=== PATIENT | female | born 1980 | race Caucasian/White ===

== ENCOUNTER 2019-12-27 22:58 | Observation (INO) ==
[2019-12-27 23:19] LABS: Basophils # 0.1 K/mcL (0.0-0.2); Basophils % 0.8 %; Eosinophils # 0.2 K/mcL (0.0-0.6); Eosinophils % 2.5 %; Hematocrit 40.5 % (35.3-44.9); Hemoglobin 13.5 g/dL (11.5-15.4); Immature Granulocytes % 0.3 % (0-4); Lymphocytes # 2.7 K/mcL (0.6-4.6); Lymphocytes % 36.3 %; Mean Corpuscular HGB Conc 33.3 g/dL (31.6-35.5); Mean Corpuscular Hemoglobin 30.8 pg (28.0-33.3); Mean Corpuscular Volume 92.3 fL (83.0-100.0); Mean Platelet Volume 10.7 fL (9.4-12.4); Monocytes # 0.6 K/mcL (0.0-1.3); Monocytes % 7.3 %; Platelet Count 293 K/mcL (140-400); Red Blood Count 4.39 M/mcL (3.82-4.97); Segmented Neutrophils % 52.8 %; White Blood Count 7.5 K/mcL (4.3-11.1)
[2019-12-27] MEDS ORDERED: Aspirin 325 MG TABLET PO ONE (23:19)
[2019-12-27] MEDS: Nitroglycerin 0.4 MG TAB.SUBL SL PRN ×3 (23:43→23:53)
[2019-12-27] MEDS ORDERED: Isovue-370 500 ML BOTTLE IVP ONE (23:47)
[2019-12-27 23:52] LABS: Alanine Aminotransferase 13 Units/L (7-52); Albumin 4.1 g/dL (3.5-5.7); Albumin/Globulin Ratio 1.2 (1.1-2.2); Alkaline Phosphatase 57 Units/L (34-104); Aspartate Amino Transferase 17 Units/L (13-39); BUN/Creatinine Ratio 17 (6-26); Bilirubin,Total 0.5 mg/dL (0.3-1.0); Blood Urea Nitrogen 15 mg/dL (6-20); Calcium 8.5 mg/dL (8.6-10.3); Carbon Dioxide 22 mEq/L (23-29); Chloride 105 mEq/L (98-107); Globulin 3.5 g/dL (2.4-3.5); Glucose 93 mg/dL (70-105); Osmolality,Calculated 283 (280-300); Potassium 3.6 mEq/L (3.5-5.1); Sodium 136 mEq/L (136-145); Total Protein 7.6 g/dL (6.4-8.9); Troponin I < 0.03 ng/mL (< 0.04); eGFR For African Americans > 60 (> 60); eGFR For Non-African Americans > 60 (> 60)
[2019-12-28] MEDS ORDERED: 0.9 % Sodium Chloride 1,000 ML IVC ONE (00:43)
[2019-12-28] MEDS ORDERED: Naloxone 0.4 MG/ML INJ IVP PRN (01:50)
[2019-12-28] MEDS ORDERED: Acetaminophen 325 MG TABLET PO PRN (02:25)
[2019-12-28] MEDS ORDERED: Ondansetron 4 MG/2 ML VIAL IVP PRN (02:25)
[2019-12-28] MEDS ORDERED: Morphine Sulfate 2 MG/ML SYRINGE IVP PRN (02:29)
[2019-12-28 05:41] LABS: Basophils % 0.5 %; Eosinophils # 0.1 K/mcL (0.0-0.6); Eosinophils % 1.3 %; Hematocrit 38.2 % (35.3-44.9); Hemoglobin 12.5 g/dL (11.5-15.4); Immature Granulocytes % 0.2 % (0-4); Lymphocytes # 2.1 K/mcL (0.6-4.6); Lymphocytes % 24.9 %; Mean Corpuscular HGB Conc 32.7 g/dL (31.6-35.5); Mean Corpuscular Hemoglobin 30.9 pg (28.0-33.3); Mean Corpuscular Volume 94.3 fL (83.0-100.0); Mean Platelet Volume 10.6 fL (9.4-12.4); Monocytes # 0.4 K/mcL (0.0-1.3); Monocytes % 5.3 %; Neutrophils # 5.6 K/mcL (1.6-8.9); Platelet Count 263 K/mcL (140-400); Red Blood Count 4.05 M/mcL (3.82-4.97); Red Cell Distribution Width 12.1 % (11.5-14.5); Segmented Neutrophils % 67.8 %; White Blood Count 8.3 K/mcL (4.3-11.1)
[2019-12-28 05:46] LABS: INR 1.2; Prothrombin Time 13.4 Seconds (9.4-12.1)
[2019-12-28 06:07] LABS: BUN/Creatinine Ratio 15 (6-26); Blood Urea Nitrogen 11 mg/dL (6-20); Calcium 8.1 mg/dL (8.6-10.3); Carbon Dioxide 22 mEq/L (23-29); Chloride 109 mEq/L (98-107); Chol/HDL Ratio 3.1 (0-4.9); Cholesterol 156 mg/dL (< 200); Glucose 90 mg/dL (70-105); HDL Cholesterol 50 mg/dL (40-59); LDL Cholesterol,Calculated 98 mg/dL (< 100); Magnesium 1.8 mg/dL (1.6-2.6); Osmolality,Calculated 283 (280-300); Sodium 137 mEq/L (136-145); Triglycerides 40 mg/dL (< 150); Troponin I < 0.03 ng/mL (< 0.04); eGFR For African Americans > 60 (> 60); eGFR For Non-African Americans > 60 (> 60)
[2019-12-28] MEDS ORDERED: Regadenoson 0.4 MG/5 ML SYRINGE IVP ONE (06:10)
[2019-12-28 06:16] LABS: Thyroid Stimulating Hormone 3.057 mcIU/mL (0.340-5.600)
[2019-12-28] MEDS ORDERED: FLUoxetine 20 MG CAPSULE PO SCH (09:00)
[2019-12-28] MEDS ORDERED: Ibuprofen 800 MG TABLET PO ONE (10:20)
[2019-12-28] MEDS ORDERED: *HR* HYDROcodone/Acet 5/325 mg TABLET PO PRN (10:21)
[2019-12-28 11:33] VITALS: BP 118/76
== END 2019-12-28 14:00 | disposition home or self-care (01) ==
LOC: 2ANU 22:58 → EMEROOARM 22:58 → SUATTDRO 12-28 00:58 → 2ANU 12-28 02:09
PROVIDERS: ADMIT Pharmacist; ATTEND Pharmacist